=== PATIENT | male | born 1990 | race Caucasian/White ===

== ENCOUNTER 2021-10-09 23:45 | Inpatient (IN) | payer SELFPAY ==
[~2021-10-09] VITALS: Ht 172.7 cm; Wt 96.6 kg
[2021-10-09 23:45] VITALS: BP_SYST 136
--- NOTE | 2021-10-09 23:45 | NUR ---
Placed in room 06 . Placed on campus monitor, blood pressure machine and pulse oximeter. To gown for exam. Side rails up. Report given to ISAIAS MCCARTY
--- NOTE | 2021-10-09 23:53 | NUR ---
ER Dr. Das at bedside examining patient, per documentation.
[2021-10-10] MEDS ORDERED: NACL 0.9% 1,000 ML IV ONE
--- NOTE | 2021-10-10 00:12 | NUR ---
Called Poison Control at [phone] and spoke with THUY. Per recommendations: CBC, CMP, SALICYCLATES, ACETAMINOPHEN, UDS, URINE. REPEART CHEMISTRY IN [address] SALEEM notified. Will continue to monitor patient.
[2021-10-10] MEDS ORDERED: DIPHENHYDRAMINE INJ 50 MG/ML VIAL IVP ONE (00:30)
[2021-10-10] MEDS ORDERED: HALOPERIDOL LACTATE 5 MG/ML VIAL IVP ONE (00:30)
[2021-10-10 00:31] LABS: POTASSIUM 3.3 mmol/L (3.5-5.1)
[2021-10-10 00:32] LABS: ALBUMIN 4.9 g/dL (3.4-4.8); CALCIUM 9.7 mg/dL (8.4-11.0); CREATININE 1.4 mg/dL (0.55-1.30); TOTAL BILIRUBIN 2.4 mg/dL (0.0-1.0)
[2021-10-10 00:37] LABS: BASOPHILS % (AUTO) 0.1 % (0.0-2.0); EOSINOPHILS % (AUTO) 0.1 % (0.0-4.0); HEMATOCRIT 46.8 % (36-54); HEMOGLOBIN 15.7 g/dL (14.0-18.0); LYMPHOCYTES % (AUTO) 12.2 % (20.5-51.5); MEAN CORPUSCULAR HEMOGLOBIN 28 pg (27-31); MEAN CORPUSCULAR HGB CONC 34 % (32-36); MEAN CORPUSCULAR VOLUME 83 fL (79.0-98.0); MONOCYTES % (AUTO) 0.5 % (1.7-9.3); NEUTROPHILS # (AUTO) 7.2 K/uL (1.8-7.7); NEUTROPHILS % (AUTO) 87.1 % (40.0-70.0); PLATELET COUNT (AUTO) 180 K/uL (130-430); RED BLOOD CELL COUNT(AUTO) 5.63 MIL/uL (4.2-6.2); WHITE BLOOD COUNT (AUTO) 8.3 K/uL (4.8-10.8)
[2021-10-10 01:02] LABS: ACETAMINOPHEN < 1 ug/mL (1-30)
--- NOTE | 2021-10-10 02:00 | NUR ---
Resting comfortably in bed. No acute signs of distress. Breathing adequately on RA.
[2021-10-10 02:03] LABS: BILIRUBIN,URINE NEGATIVE (NEGATIVE); BLOOD, URINE NEGATIVE (NEGATIVE); CLARITY/URINE CLEAR (CLEAR); COLOR,URINE YELLOW (YELLOW); GLUCOSE,URINE NEGATIVE (NEGATIVE); KETONES,URINE 1+ (NEGATIVE); LEUKOCYTE ESTERASE ,URINE NEGATIVE (NEGATIVE); NITRITE, URINE NEGATIVE (NEGATIVE); PH,URINE 5.5 (5.0-8.0); PROTEIN URINE NEGATIVE (NEGATIVE)
[2021-10-10 02:27] LABS: BARBITURATE, URINE NEGATIVE (NEG <=200); METHAMPHETAMINES SCREEN,URINE NEGATIVE (NEG <=500); URINE AMPHETAMINE NEGATIVE (NEG <=500)
[2021-10-10 02:28] LABS: BENZODIAZEPINE, URINE NEGATIVE (NEG <=150); CANNABINOID, URINE POSITIVE (NEG <=50); COCAINE, URINE NEGATIVE (NEG <=150); OPIATE, URINE POSITIVE (NEG <=100); PHENCYCLIDINE SCREEN,URINE NEGATIVE (NEG <=25); URINE METHADONE NEGATIVE (NEG <=200)
[2021-10-10 02:29] LABS: UR TRICYCLIC ANTIDEPRESSANTS NEGATIVE (NEG <=300); URINE OXYCODONE SCREEN NEGATIVE (NEG <=100); URINE PROPOXYPHENE SCREEN NEGATIVE (NEG <=300)
[2021-10-10] MEDS ORDERED: ONDA-8 TL (02:47)
--- NOTE | 2021-10-10 03:30 | NUR ---
Sleeping in bed. No signs of acute distress. Breathing adequately on RA. Cont being monitored.
[2021-10-10] MEDS ORDERED: POTASSIUM CHLORIDE 20 MEQ TAB.PRT.SR PO ONE (05:45)
[2021-10-10] MEDS ORDERED: NACL 0.9% 1,000 ML, NACL 0.9% 1,000 ML IV ONE (05:45)
[2021-10-10] MEDS ORDERED: ONDANSETRON HCL 4 MG/2 ML VIAL IVP PRN (05:45)
[2021-10-10] MEDS ORDERED: PANTOPRAZOLE SODIUM 40 MG/VIAL (PROTONIX) IVP ONE (05:45)
--- NOTE | 2021-10-10 06:10 | NUR ---
AMBER SWAB collected and sent to lab
--- NOTE | 2021-10-10 06:23 | NUR ---
Received admit orders to admit to Tele under MD Laura with Dx of Dehydration and ANDER.
--- NOTE | 2021-10-10 07:19 | NUR ---
Pt in bed resting with no s/s of distress. Pt is A&Ox4. Skin intact. HR at 128, other vitals stable. Pt has 18g IV on left AC that is intact and no infiltration noted. 1L NS running bolus, once complete another 1L of NS will be initiated under ER physicians order. Pt aware he will be admitted and has no c/o. Connected to digital archivist. Waiting for covid swab results to admit pt to floor.
--- NOTE | 2021-10-10 07:34 | NUR ---
Pt belonging list completed. Pt completed his 1L of NS that was running. Another 1L NS initiated bolus. Pt has no c/o.
--- NOTE | 2021-10-10 08:00 | NUR ---
ADMISSION NOTE Received patient from ER via gurney. Patient admitted with diagnosis of Acute Kidney Injury,Dehydration. Patient is awake, alert, oriented X 4. Patient oriented to hospital room, call light, toileting, pain management and safety-teach back done. Patient informed that I will be his nurse and that their room number is 119-A. Personal belongings checked and Belongings List documented. Call light within reach.
[2021-10-10 08:10] VITALS: BP_SYST 116
--- NOTE | 2021-10-10 08:13 | NUR ---
Admit bed requested Patient will be admitted to care of . Admitted to Tele unit. Diagnosis ANDER and Dehydration Inpatient Yes Observation Yes Orientation concerns or request close to nursing station No Covid Status Negative On vent or bipap Isolation requirements Needs a sitter From Home (Yes or if No enter name of facility) Requires Dialysis (Yes or No)
--- NOTE | 2021-10-10 08:15 | NUR ---
Patient will be admitted to care of Dr. Laura. Admitted to Tele unit. Will go to room 119A. Belongings list completed. Complete and up to date summary report printed. SBAR report to be given at bedside with opportunity for questions.
[2021-10-10 10:26] VITALS: BP_SYST 116
[2021-10-10 12:00] VITALS: BP_SYST 106
[2021-10-10] MEDS ORDERED: NALOXONE HCL 0.4 MG/ML AMP (NARCAN) IVP PRN (12:45)
[2021-10-10] MEDS ORDERED: traMADol HCL HCL 50 MG TABLET (ULTRAM) PO PRN (12:45)
[2021-10-10] MEDS ORDERED: ACETAMINOPHEN 325 MG TABLET PO PRN (12:45)
[2021-10-10 12:55] LABS: BASOPHILS # (AUTO) 0.1 K/uL (0.0-0.2); BASOPHILS % (AUTO) 0.4 % (0.0-2.0); HEMATOCRIT 41.7 % (36-54); HEMOGLOBIN 13.8 g/dL (14.0-18.0); LYMPHOCYTES # (AUTO) 0.5 K/uL (1.0-5.5); LYMPHOCYTES % (AUTO) 2.9 % (20.5-51.5); MEAN CORPUSCULAR HEMOGLOBIN 27 pg (27-31); MEAN CORPUSCULAR HGB CONC 33 % (32-36); MEAN CORPUSCULAR VOLUME 83 fL (79.0-98.0); MONOCYTES # (AUTO) 0.6 K/uL (0.0-1.0); MONOCYTES % (AUTO) 3.3 % (1.7-9.3); NEUTROPHILS % (AUTO) 93.4 % (40.0-70.0); PLATELET COUNT (AUTO) 144 K/uL (130-430); RED BLOOD CELL COUNT(AUTO) 5.03 MIL/uL (4.2-6.2); RED CELL DISTRIBUTION WIDTH 13.1 % (9.0-15.0); WHITE BLOOD COUNT (AUTO) 18.2 K/uL (4.8-10.8)
[2021-10-10 13:00] LABS: CALCIUM 8.3 mg/dL (8.4-11.0); CREATININE 1.34 mg/dL (0.55-1.30); POTASSIUM 4.3 mmol/L (3.5-5.1)
[2021-10-10] MEDS ORDERED: CLINDAMYCIN 600 mg/50mL D5W 50 ML IV ONE (13:00)
[2021-10-10] MEDS ORDERED: LACTOBACILLUS RHAMNOSUS GG 1 CAP CAPSULE PO ONE (13:00)
[2021-10-10] MEDS ORDERED: CEPHALEXIN 250 MG/5 ML, 100 ML BTL PO ONE (13:00)
--- NOTE | 2021-10-10 14:00 | NUR ---
RN NOTES: PATIENT WOULD WANT TO HEAR FROM HIS JOB IF COMPANY WILL SHOULDER HOSPITAL BILLS. HOLDING HIS AMA THIS TIME.
[2021-10-10] MEDS: NACL 0.9% 1,000 ML IV SCH (14:04)
[2021-10-10] MEDS: HYDROcodone/ACETAMIN 5-325 MG TAB (NORCO/ VICODIN) PO PRN (14:10)
--- NOTE | 2021-10-10 14:19 | NUR ---
Antique Repairer DEEP Moraes met with patient at bedside. Patient was sitting up in bed alert, and open to engagement. The patient shared he has been experiencing tooth pain and was not able to get relief from medication leading to ingesting about 30 ibuprofen. He shared his friend brought him to the hospital after he began vomiting, according to the patient this was due to not eating and experiencing nausea from the pain. Patient denies any past or current Suicide Ideation. He denies any current mental health diagnosis. Patient shares he is employed, and is supported by his parents, siblings, extended family and several good friends. He stated "i love my life but I understand why you would be concerned". Patient declined mental health resources, but is open to dental care resources. ACQUISITION PROFESSIONAL will remain available as needed.
--- NOTE | 2021-10-10 15:00 | NUR ---
Electrical And Electronic Assembler DEEP Moraes provided patient with resources for Low Income dental clinics and [employer] application information. DEEP will remain available as needed.
--- NOTE | 2021-10-10 16:00 | NUR ---
RN ROUNDS: PATIENT SLEEPING DURING ROUNDS. STABLE.
[2021-10-10] MEDS: CLINDAMYCIN 600 mg/50mL D5W 50 ML IV SCH (17:55)
[2021-10-10] MEDS: CEPHALEXIN 250 MG/5 ML, 100 ML BTL PO SCH (17:55)
[2021-10-10 17:59] VITALS: BP_SYST 121
--- NOTE | 2021-10-10 18:42 | NUR ---
END OF SHIFT: PATIENT TOLERATED HIS CLEAR LIQUID WELL. 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 COMFORTABLE THIS TIME.
--- NOTE | 2021-10-10 19:15 | NUR ---
OPENING NOTES Patient resting in bed - no s/s pain or distress noted. Respirations even and unlabored - head of bed elevated. IV site patent - no s/ s redness, infection, or infiltration. Bed locked and in lowest position. Call light within reach.
[2021-10-10] MEDS: LACTOBACILLUS RHAMNOSUS GG 1 CAP CAPSULE PO SCH (20:44)
[2021-10-11] MEDS: CEPHALEXIN 250 MG/5 ML, 100 ML BTL PO SCH ×3 (00:15→11:14)
[2021-10-11] MEDS: CLINDAMYCIN 600 mg/50mL D5W 50 ML IV SCH ×3 (00:15→11:13)
[2021-10-11 01:15] VITALS: BP_SYST 133
--- NOTE | 2021-10-11 07:40 | NUR ---
MORNING ROUNDS: PATIENT RESTING DURING ROUNDS.IV FLUIDS RUNNING AT LEFT AC INTACT. ROOM AIR ,WITH GOOD SATURATION. CALL LIGHT WITH IN REACH. BED LOCKED AT LOWEST POSITION.STABLE.
[2021-10-11 08:10] VITALS: BP_SYST 114
[2021-10-11] MEDS: NACL 0.9% 1,000 ML IV SCH ×2 (09:15→11:16)
[2021-10-11] MEDS: LACTOBACILLUS RHAMNOSUS GG 1 CAP CAPSULE PO SCH (09:24)
[2021-10-11] MEDS: HYDROcodone/ACETAMIN 5-325 MG TAB (NORCO/ VICODIN) PO PRN (11:11)
[2021-10-11 12:43] VITALS: BP_SYST 123
--- NOTE | 2021-10-11 14:33 | NUR ---
Substation Manager DEEP Ardon met with patient at bedside. Patient was sitting at the side of the bed speaking with a student nurse. Patient was open to engaging with DEPUTY MANAGER. Due to patient testing positive for THC, DEPUTY MANAGER discussed substance use with the patient. Patient denied marijuana use having an impact on his job or personal life. DEPUTY MANAGER offered substance abuse resources, but patient declined. DEPUTY MANAGER reminded patient of utilizing 211 or 211[employer] if support is needed at a later time. DEEP Ardon will remain available as needed.
[2021-10-11 14:38] LABS: BASOPHILS % (AUTO) 0.4 % (0.0-2.0); EOSINOPHILS % (AUTO) 0.2 % (0.0-4.0); HEMATOCRIT 41.4 % (36-54); HEMOGLOBIN 14.2 g/dL (14.0-18.0); LYMPHOCYTES # (AUTO) 1.1 K/uL (1.0-5.5); LYMPHOCYTES % (AUTO) 15.1 % (20.5-51.5); MEAN CORPUSCULAR HEMOGLOBIN 28 pg (27-31); MEAN CORPUSCULAR HGB CONC 34 % (32-36); MEAN CORPUSCULAR VOLUME 82 fL (79.0-98.0); MONOCYTES # (AUTO) 0.4 K/uL (0.0-1.0); MONOCYTES % (AUTO) 6.1 % (1.7-9.3); NEUTROPHILS # (AUTO) 5.7 K/uL (1.8-7.7); NEUTROPHILS % (AUTO) 78.2 % (40.0-70.0); PLATELET COUNT (AUTO) 135 K/uL (130-430); RED BLOOD CELL COUNT(AUTO) 5.03 MIL/uL (4.2-6.2); RED CELL DISTRIBUTION WIDTH 13.3 % (9.0-15.0); WHITE BLOOD COUNT (AUTO) 7.3 K/uL (4.8-10.8)
[2021-10-11 14:54] LABS: CALCIUM 9.1 mg/dL (8.4-11.0); CREATININE 1.06 mg/dL (0.55-1.30); POTASSIUM 3.5 mmol/L (3.5-5.1)
[2021-10-11 15:24] VITALS: BP_SYST 118
[2021-10-11] MEDS ORDERED: KEF250/5 PO (16:18)
[2021-10-11] MEDS ORDERED: TRAM50TA2 PO (16:18)
[2021-10-11 16:39] VITALS: BP_SYST 118
--- NOTE | 2021-10-11 17:00 | NUR ---
D/C Patient Patient given medication reconciliation form and D/C instructions. Exit Care provided. Patient verbalized understanding. MD discussed with patient the results and treatment provided. Ambulatory with steady gait for discharge to home. Patient in stable condition, ID band removed. IV catheter removed, intact and dressing applied, no active bleeding. Rx of Tramadol and keflex given. Patient educated on pain management. All belongings sent with patient.
== END 2021-10-11 16:55 | disposition home or self-care (01) | DRG 157 ==
LOC: SED 23:45 → STU 10-10 05:44 → SMU 10-11 14:26
PROVIDERS: ADMIT Internal Medicine; ATTEND Internal Medicine
DX: K04.7 Periapical abscess without sinus (principal); N17.0 Acute kidney failure with tubular necrosis; E86.0 Dehydration; Z20.822 Contact with and (suspected) exposure to COVID-19; T39.395A Adverse effect of other nonsteroidal anti-inflammatory drugs [NSAID], initial encounter; Y92.89 Other specified places as the place of occurrence of the external cause
CPT/HCPCS: 36415; 76770; 80048; 80053; 80307; 81003; 85025; 96374; 96375; 99285; C9113; G0378; G0480; G0481; J1200; J1630; J3490